=== PATIENT | female | born 1945 | race Two or more races ===

== ENCOUNTER 2019-10-19 06:18 | Day surgery (SDC) | payer MEDICARE, OTHER ==
[2019-10-13 11:38] LABS: EOSINOPHILS % (AUTO) 2.3 % (0.0-3.0); HEMATOCRIT 42.9 % (37.0-47.0); HEMOGLOBIN 13.5 G/DL (12.0-16.0); MEAN CORPUSCULAR VOLUME 91 FL (80-99); MONOCYTES % (AUTO) 7.6 % (1.0-10.0); NEUTROPHILS % (AUTO) 48.2 % (45.0-75.0); PLATELET COUNT 208 K/UL (150-450); RED BLOOD COUNT 4.72 M/UL (4.20-5.40); RED CELL DISTRIBUTION WIDTH 13.8 % (11.6-14.8); WHITE BLOOD COUNT 7.1 K/UL (4.8-10.8)
[2019-10-13 11:45] LABS: ANION GAP 6 mmol/L (5-15); BLOOD UREA NITROGEN 13 mg/dL (7-18); CALCIUM 9.7 MG/DL (8.5-10.1); CARBON DIOXIDE 30 MMOL/L (21-32); CHLORIDE 105 MMOL/L (98-107); CREATININE 0.9 MG/DL (0.55-1.30); POTASSIUM 4.6 MMOL/L (3.5-5.1); SODIUM 141 MMOL/L (136-145)
[2019-10-13 11:55] LABS: INR 0.9 (0.9-1.1)
--- NOTE | 2019-10-16 10:39 | Opthalmology H&P ---
Ophthalmology H&P H&P Chief Complaint: decreased vision in right eye HPI Vision Affects Ability to: read, focus/use eyes together, manage personal affairs Past Ocular History: glaucoma HPI Narrative blurry vision Exam Visual Acuity: OD Counting fingers OS 20/40 Tension: OD 20 OS 20 Eye Exam: normal OU: external exam, palpebral fissure-width, marginal reflex distance, levator function, corneas, anterior chambers; findings: lens - NS Cataracts OU, fundus exam - Glaucoma OU Assessment/Plan Treatment Plan: cataract extraction w/ lens implant Goals of Treatment: improvement of vision, enhance quality of life Attestation Attestation The risks and benefits of the surgery as well as alternative procedures were explained to the patient in detail. Kashmir Castellanos MD Oct 16, 2019 10:39
--- NOTE | 2019-10-16 10:40 | Pre-Procedure Note/Attestation ---
Pre-Procedure Note/Attestation Complete Prior to Procedure Planned Procedure: right Procedure Narrative: Cataract extraction with intraocular lens implant right eye Indications for Procedure Pre-Operative Diagnosis: Nuclear sclerotic cataract right eye Attestation I attest that I discussed the nature of the procedure; its benefits; risks and complications; and alternatives (and the risks and benefits of such alternatives ), prior to the procedure, with the patient (or the patient's legal advertising sales representative). I attest that, if there was a reasonable possibility of needing a blood transfusion, the patient (or the patient's legal advertising sales representative) was given the [facility] standardized written summary, pursuant to the [place] [place] Blood Safety Act ([place] Health and Safety Code # 1645, as amended). I attest that I re-evaluated the patient just prior to the surgery and that there has been no change in the patient's H&P, except as documented below: Kashmir Castellanos MD Oct 16, 2019 10:40
--- NOTE | 2019-10-16 13:15 | Pre-op HX & Phy Repo 2 SIG ---
DATE OF ADMISSION: 10/19/2019 PRESURGICAL INTERNAL MEDICINE HISTORY AND PHYSICAL DATE OF EVALUATION: 10/16/2019. REASON FOR EVALUATION: I was asked by Dr. Kashmir Castellanos to see this 74-year-old female who is going for elective surgery of the right eye. The patient has nuclear sclerotic cataract, right eye. Please see Ophthalmology History and Physical by Dr. Kashmri Castellanos. The patient was examined at outpatient procedure [facility]. Surgery is scheduled for 10/19/2019. PAST MEDICAL HISTORY AND REVIEW OF SYSTEMS: Remarkable for history of hypertension, type 2 diabetes, breast cancer on the right and lung biopsy. Negative for malignancy. No history of stroke. Denies history of heart attack, chest pain, or palpitation. No seizures. No history of GI bleeding or hepatitis. Denies history of renal failure or anemia. PAST SURGICAL HISTORY: Breast cancer, lung biopsy. FAMILY HISTORY: Mother had diabetes mellitus and father of old age. ALLERGIES: Surgical tape. PRESENT MEDICATIONS: Include amlodipine, calcium carbonate, atorvastatin, vitamin D, ophthalmic drops. HABITS: The patient denies history of smoking, alcohol habit, or street drug use. PHYSICAL EXAMINATION: GENERAL: Alert, well-developed and well-nourished female who is in 70s. BMI is 30.8 kg/m sq. VITAL SIGNS: Blood pressure 190/89 and 178/103, temperature 97.1, pulse 68 and regular. O2 saturation of 100% on room air. SKIN: Scar on the left dorsal foot. Trauma as a child. Skin warm. No rashes. No diaphoresis today, dry. LYMPHATICS: Lymph nodes not enlarged. HEENT: Head is normocephalic and atraumatic. Ears, clear. No discharge. Eyes, full description per Dr. Kashmir Castellanos. Mouth, clear and moist. Dentures, upper and old. NECK: Supple. No jugular venous distention. Carotids artery +2. Trachea midline. CHEST: No deformity or asymmetry. Post right mastectomy. HEART: Sinus, regular. No ectopy. No murmur. No S3, S4. LUNGS: Clear. No rales or rhonchi. ABDOMEN: Soft. No palpable mass, obesity. No rebound. EXTREMITIES: No peripheral edema. No varicose vein. No degenerative joint disease. GENITOURINARY: Denied dysuria. No CVA tenderness. NEUROLOGIC: No asymmetry. No tremor. No nystagmus. LABORATORY AND DIAGNOSTIC DATA: ECG - sinus rhythm 65 per minute, minimal criteria for LVH. Lab work pending. The patient is to be NPO after midnight Saturday. IMPRESSION: 1. Nuclear sclerotic cataract, right eye. 2. Hypertension, poorly controlled. 3. Diabetes mellitus type 2. 4. Obesity. BMI 30.8 kg/meter square. 5. History of breast cancer. 6. EKG, LVH with normal sinus rhythm. PLAN: Cataract extraction, right eye with intraocular lens implant per Dr. Kashmir Castellanos. CONCLUSION: The patient's vital signs, blood pressure is elevated, poorly controlled with medication. The patient has minimal LVH on EKG. Laboratory work pending. Check blood pressure prior to surgery and check blood sugar. The patient to be NPO after midnight Saturday. The patient's condition was optimized for surgery under local anesthesia. Harjeet Cali M.D. DR: NOLA JOB#: [id number] CC:
[2019-10-19] VITALS (8 sets, daily range): BP systolic 138–179; BP diastolic 72–103
[~2019-10-19] VITALS: Ht 154.9 cm; Wt 66.7 kg
[~2019-10-19 06:18] MED LIST: AMLODIPINE BES2.5 MG ORAL; ARIMIDEX1 MG ORAL; CALCIUM500 M3 PO; JENTADUETO 2.51 EAC2 PO; LOVASTATIN40 MG ORAL; Vit D3 PO
[2019-10-19] MEDS ORDERED: Akten 3.5% 1ml Btl RIGHT EYE ONE (07:00)
[2019-10-19] MEDS ORDERED: Tetracaine 0.5% Opth 4ml Soln RIGHT EYE ONE (07:00)
[2019-10-19] MEDS ORDERED: Proparacaine 0.5% Opth Soln 15ml RIGHT EYE ONE (07:00)
[2019-10-19] MEDS ORDERED: Sodium Hyaluronate 10 mg/ml 0.85ml ONE ×2 (09:52→13:16)
[2019-10-19] MEDS ORDERED: Povidone-Iodine 5% opth solution ONE ×2 (09:52→12:35)
[2019-10-19] MEDS ORDERED: EPINEPHrine 1mg/1ml Amp ONE (09:52)
[2019-10-19] MEDS ORDERED: BSS 500ml btl ONE (09:52)
[2019-10-19] MEDS ORDERED: BSS 15ml BTL ONE (09:52)
[2019-10-19] MEDS ORDERED: LR 1000ml 1,000 ML IVLG SCH ×2 (10:09)
--- NOTE | 2019-10-19 10:14 | Anethesia Preoperative Eval ---
Anesthesia Pre-op PMH/ROS General Date of Evaluation: Oct 19, 2019 Time of Evaluation: 11:51 Anesthesiologist: Brian ASA Score: ASA 3 Mallampati Score Class I : Soft palate, uvula, fauces, pillars visible Class II: Soft palate, uvula, fauces visible Class III: Soft palate, base of uvula visible Class IV: Only hard plate visible Mallampati Classification: Class II Surgeon: Jasmin Diagnosis: Cataract OD Surgical Procedure: Cat Ext IOL OD Anesthesia History: none Family History: no anesthesia problems Allergies: Uncoded Allergies: surgical tape (Allergy, Intermediate, rash, 10/15/19) Medications: see eMAR Patient NPO?: Yes Past Medical History Cardiovascular: Reports: HTN, other - HL Endocrine: Reports: DM HEENT: Reports: cataract (L), cataract (R), glaucoma Hematology/Immune: Reports: other - Breast CA Other: obesity - BMI 32 PSxH Narrative: R Breast Lumpectomy, Lung Bx Anesthesia Pre-op Phys. Exam Physician Exam Last Vital Signs Date Time Temp Pulse Resp B/P (MAP) Pulse Ox O2 Delivery O2 Flow Rate FiO2 10/19/19 09:11 Room Air Constitutional: NAD Neurologic: CN 2-12 intact Cardiovascular: RRR Respiratory: CTA Gastrointestinal: S/NT/ND Airway Exam Mallampati Score: Class II MO: limited ROM: limited Teeth: missing, intact Anesthesia Pre-op A/P Risk Assessment & Plan Assessment: ASA 3 Plan: TIVA Status Change Before Surgery: No Pete Torres MD Oct 19, 2019 10:14
[2019-10-19] MEDS ORDERED: fentaNYL 100 mcg/2 mL IV PRN ×2 (10:15)
[2019-10-19] MEDS ORDERED: oxyCODONE HCL/Acetaminophen 5/325mg ORAL PRN ×2 (10:15)
[2019-10-19] MEDS ORDERED: HYDROcodone/Acetamin 5/325 tab ORAL PRN ×2 (10:15)
[2019-10-19] MEDS ORDERED: Metoclopramide 10mg/2ml Inj IVP PRN ×2 (10:15)
[2019-10-19] MEDS ORDERED: Atropine Sulfate 0.4mg/ml inj IVP PRN ×2 (10:15)
[2019-10-19] MEDS ORDERED: Midazolam 2mg/2ml Inj IVP PRN ×2 (10:15)
[2019-10-19] MEDS ORDERED: Meperidine 25mg/0.5ml Inj (FOR RIGORS ONLY) IV PRN ×2 (10:15)
[2019-10-19] MEDS ORDERED: Ketorolac 30mg Inj IV PRN ×4 (10:15)
[2019-10-19] MEDS ORDERED: HYDROcodone/Acetamin 7.5/325 tab ORAL PRN ×2 (10:15)
[2019-10-19] MEDS ORDERED: DiphenhydrAMINE 50mg/ml Inj IVP PRN ×2 (10:15)
[2019-10-19] MEDS ORDERED: Labetalol 5mg/ml 20ml vial IV PRN ×2 (10:15)
[2019-10-19] MEDS ORDERED: Hydromorphone 0.5mg/0.5ml inj IVP PRN ×2 (10:15)
[2019-10-19] MEDS ORDERED: LORazepam Inj 2mg/ml 1ml IV PRN ×2 (10:15)
--- NOTE | 2019-10-19 10:15 | 48 Hour Post Anesthesia Eval ---
Post Anesthesia Evaluation Procedure: Cat Ext IOL OD Date of Evaluation: Oct 19, 2019 Time of Evaluation: 15:23 Blood Pressure Systolic: 164 0: 78 Pulse Rate: 79 Respiratory Rate: 18 Temperature (Fahrenheit): 98 O2 Sat by Pulse Oximetry: 99 Airway: patent Nausea: No Vomiting: No Pain Intensity: 1 Hydration Status: adequate Cardiopulmonary Status: Stable Mental Status/LOC: patient returned to baseline Follow-up Care/Observations: 0 Post-Anesthesia Complications: 0 Follow-up care needed: ready to discharge Pete Torres MD Oct 19, 2019 10:15
--- NOTE | 2019-10-19 10:15 | Immediate Post-Op Evaluation ---
Immediate Post-Op Evalulation Immediate Post-Op Evalulation Procedure: Cat Ext IOL OD Date of Evaluation: Oct 19, 2019 Time of Evaluation: 13:13 IV Fluids: 600 LR Blood Products: 0 Estimated Blood Loss: 1 Urinary Output: 0 Blood Pressure Systolic: 172 Blood Pressure Diastolic: 103 Pulse Rate: 82 Respiratory Rate: 16 O2 Sat by Pulse Oximetry: 100 Temperature (Fahrenheit): 97.9 Pain Score (1-10): 1 Nausea: No Vomiting: No Complications 0 Patient Status: awake, reacts, patent, none Hydration Status: adequate Pete Torres MD Oct 19, 2019 10:15
[2019-10-19] MEDS ORDERED: Midazolam 2mg/2ml Inj ONE (10:58)
[2019-10-19] MEDS ORDERED: Lidocaine 1% MPF 10mg/ml 5ml ONE (10:58)
[2019-10-19] MEDS: Tropicamide 1% Opth 15ml Soln RIGHT EYE SCH ×3 (11:32→11:48)
[2019-10-19] MEDS: Tobramycin Op Soln 0.3% 5ml RIGHT EYE SCH ×3 (11:32→11:48)
[2019-10-19] MEDS: Cyclopentolate 1% Opth Sol 2ml RIGHT EYE SCH ×3 (11:32→11:48)
[2019-10-19] MEDS: Phenylephrine 10% Opth Soln 5ml RIGHT EYE SCH ×3 (11:32→11:48)
[2019-10-19] MEDS: Diclofenac Sod 0.1% Op Soln RIGHT EYE SCH ×3 (11:32→11:48)
[2019-10-19] MEDS ORDERED: Pilocarpine 1% Opth 15ml Soln ONE (12:00)
[2019-10-19] MEDS ORDERED: LR 1000ml ONE (12:00)
[2019-10-19] MEDS ORDERED: prednisoLONE acetate 1% Opth Susp 1ml ONE (12:00)
[2019-10-19] MEDS ORDERED: Sterile Water Irrig 1000ml IRRIG ONE (12:00)
[2019-10-19] MEDS ORDERED: Maxitrol Opth Oint 3.5gm ONE (12:00)
[2019-10-19] MEDS ORDERED: NS Irrig 1000ml ONE (12:00)
[2019-10-19] MEDS ORDERED: Flumazenil 0.5mg/5ml Inj IV ONE (12:32)
--- NOTE | 2019-10-19 15:29 | Brief Operative Note ---
Immediate Post Operative Note Operative Note Chief Complaint: Blurry vision Pre-op Diagnosis: Nuclear sclerotic cataract right eye Procedure: Cataract extraction with IOL implant right eye Post-op Diagnosis: Pseudophakia OD Findings: consistent w/pre-op dx studies Surgeon: Kashmir Castellanos MD Anesthesiologist: Pete Torres MD Anesthesia: MAC Specimen: none Complications: none Condition: stable Fluids: LR Estimated Blood Loss: none Drains: none Implant(s) used?: Yes - IOL-OD Kashmir Castellanos MD Oct 19, 2019 15:29
--- NOTE | 2019-10-19 15:34 | Operative Note - PDOC ---
Operative Note Operative Note Date of Operation/Procedure: Oct 19, 2019 Chief Complaint: Blurry vision Pre-op Diagnosis: Nuclear sclerotic cataract right eye Procedure: Cataract extraction with IOL implant right eye Post-op Diagnosis: Pseudophakia OD Operative Findings: consistent w/pre-op dx studies Surgeon: Kashmir Castellanos MD Anesthesiologist: Pete Torres MD Anesthesia: MAC Specimen: none Complications: none Condition: stable Fluids: LR Estimated Blood Loss: none Drains: none Implant(s) used?: Yes - IOL-OD Indications for Procedure Nuclear sclerotic cataract right eye Description of Procedure This patient has been complaining visually significant cataract in the right eye with the best corrected visual acuity of counting fingers at three feet distance. The patient complains of difficulties with glare in performing activities of daily living and wants to manage personal affairs with comfort and accuracy and see well enough to move with safety at home and outdoors independently. The risks, benefits and alternatives of the procedure were discussed with the patient in the office prior to scheduling surgery. All questions from the patient were answered after the surgical procedure was explained in detail. The risks of the procedure as explained to the patient include, but are not limited to, pain, infection, bleeding, loss of vision, retinal detachment, need for further surgery, loss of lens nucleus, double vision, etc. Alternative procedures were discussed which include, to do nothing or seek a second opinion. Informed consent for this procedure was obtained from the patient. The patient was referred to a primary care physician for a cardiopulmonary clearance prior to surgery, after proper evaluation was done patient was properly scheduled for outpatient surgery. The patient was brought to the operating room where the anesthesiologist established I.V. lines and cardiac monitoring leads. Mild intravenous sedation was administered. The patient was then prepared with a 5% solution of povidone -iodine to the conjunctival fornix and lashes, and a 5% solution of povidone- iodine to the lids and periorbital skin. The patient was then draped in the usual sterile fashion. A lid speculum was then placed in the operative eye. A keratome blade was then used to create a biplanar incision into the anterior chamber. Viscoelastics was then instilled into the anterior chamber. A capsulorrhexis was then fashioned with an utrata forceps followed by hydrodissection and hydro delineation of the lens nucleus. Paracentesis incision was made at 3 o'clock with sharp blade. The phacoemulsification unit, after being properly adjusted and tested, was then used to emulsify the nucleus followed by aspiration and irrigation of residual cortical material. Healon was then instilled into the anterior chamber. The corneal wound was then enlarged to the size of the optic with the simone keratome blade. The intraocular lens was then inspected for right power and size and thought to be satisfactory. Then the lens was gently placed in the capsular bag. Positioning within the capsular bag was confirmed by direct visualization. Optic centration was accomplished with a Sinskey hook. Viscoelastics was removed from the anterior chamber using the irrigation and aspiration unit. The corneal wound was then tested for leaks and none were found. The lid speculum were then removed. Sponge and needle counts were correct. An eye patch and shield were placed over the operative eye. The patient was taken to the recovery room in stable condition. There were no complications. The patient tolerated the procedure well. The patient was then transferred to the ambulatory surgery unit in stable and satisfactory condition , was given detailed written instructions and asked to follow up in the office the next day. Kashmir Castellanos MD Oct 19, 2019 15:34
== END 2019-10-19 14:10 | disposition home or self-care (01) ==
LOC: SUR 06:18
DX: H25.11 Age-related nuclear cataract, right eye (principal); I10 Essential (primary) hypertension; E11.9 Type 2 diabetes mellitus without complications; Z68.27 Body mass index [BMI] 27.0-27.9, adult; H40.9 Unspecified glaucoma; E66.9 Obesity, unspecified; Z79.899 Other long term (current) drug therapy; Z85.3 Personal history of malignant neoplasm of breast
CPT/HCPCS: 36415; 66984; 80048; 82962; 85025; 85610; 85730; 93005; 94003; J0171; J1100; J2250; J3370; J7120; U0002; V2632; 94150